=== PATIENT | female | born 1960 | race Caucasian/White ===

== ENCOUNTER 2017-08-23 20:08 | Emergency (ER) | payer MEDICARE, MEDICAID ==
--- NOTE | 2017-08-23 22:31 | RAD ---
LEFT SHOULDER THREE VIEWS: 08/23/17 No fracture, dislocation, or AC joint widening was seen. The visible adjacent ribs appear normal. No obvious cause for shoulder pain was found. IMPRESSION: No acute findings. POS: HOME
== END 2017-08-23 21:18 | disposition home or self-care (01) ==
LOC: BURERS 20:08
DX: S46.912A Strain of unspecified muscle, fascia and tendon at shoulder and upper arm level, left arm, initial encounter (principal); J44.9 Chronic obstructive pulmonary disease, unspecified; M19.90 Unspecified osteoarthritis, unspecified site; F41.9 Anxiety disorder, unspecified; F32.9 Major depressive disorder, single episode, unspecified; F17.210 Nicotine dependence, cigarettes, uncomplicated; X58.XXXA Exposure to other specified factors, initial encounter

== ENCOUNTER 2018-07-21 00:26 | Emergency (ER) | payer MEDICAID, MEDICARE | END 2018-07-21 00:57 | disposition home or self-care (01) | LOC: BURERS 00:26 | DX: H60.93 Unspecified otitis externa, bilateral (principal); J44.9 Chronic obstructive pulmonary disease, unspecified; F41.9 Anxiety disorder, unspecified; F32.9 Major depressive disorder, single episode, unspecified; F17.210 Nicotine dependence, cigarettes, uncomplicated; Z79.899 Other long term (current) drug therapy | CPT/HCPCS: 99282 ==

== ENCOUNTER 2019-05-26 13:59 | Emergency (ER) | payer MEDICARE, MEDICAID | END 2019-05-26 14:38 | disposition home or self-care (01) | LOC: BURERS 13:59 | DX: K04.7 Periapical abscess without sinus (principal); J44.9 Chronic obstructive pulmonary disease, unspecified; M19.90 Unspecified osteoarthritis, unspecified site; F41.9 Anxiety disorder, unspecified; F32.9 Major depressive disorder, single episode, unspecified; F17.290 Nicotine dependence, other tobacco product, uncomplicated; F17.210 Nicotine dependence, cigarettes, uncomplicated | CPT/HCPCS: 99281 ==

== ENCOUNTER 2020-03-11 15:13 | Outpatient (CLI) | payer MEDICARE, MEDICAID ==
--- NOTE | 2020-03-11 15:37 | RAD ---
Exam: 2 views lumbar spine COMPARISON: 07/25/2013 HISTORY: Lumbar radiculopathy. FINDINGS: 5 lumbar type vertebra. Stable bilateral transpedicular screws at L4 and L5 and lateral rig ht-sided transpedicular screw at S1. No perihardware loosening. Lumbar spine vertebral body height is maintained. No fracture. Stable mild/moderate loss of disc spac e at L4-L5 and moderate loss of disc space at L5-S1. There is a sacrum and bony pelvis is intact IMPRESSION: Uncomplicated lumbar fusion.
== END 2020-03-11 15:14 | disposition home or self-care (01) ==
LOC: BURRAD 15:13
PROVIDERS: ATTEND Neurological Surgery
DX: M54.16 Radiculopathy, lumbar region (principal); Z98.1 Arthrodesis status
CPT/HCPCS: 72100

== ENCOUNTER 2020-10-28 09:36 | Emergency (ER) | payer MEDICARE, MEDICAID ==
[2020-10-28 10:45] LABS: #Basophils 0.1 thou/uL (0.0-0.2); #Eosinphils 0.2 thou/uL (0.0-0.7); #Lymphocytes 3.1 thou/uL (1.20-3.40); #Monocytes 0.7 thou/uL (0.11-0.59); #Neutrophils 10.3 thou/uL (1.40-6.50); %Basophils 0.6 % (0.0-1.0); %Eosinophils 1.2 % (0.0-10.0); %Lymphocytes 21.3 % (21.0-51.0); %Monocytes 4.7 % (0.0-10.0); %Neutrophils 72.2 % (42.0-75.0); Hemoglobin 15.9 g/dL (12.0-16.0); Mean Corpuscular HGB CONC 33.9 g/dL (32.0-36.0); Mean Corpuscular Volume 85.6 fL (78.0-98.0); Mean Platelet Volume 9.4 fL (7.4-10.4); Platelet Count 277 thou/uL (130-400); RBC Distribution Width 12.9 % (11.5-14.5); White Blood Cell (WBC) Count 14.3 thou/uL (4.8-10.8)
[2020-10-28 10:49] LABS: ALT (SGPT) 17 U/L (8-55); AST (SGOT) 13 U/L (5-34); Albumin 4.5 g/dL (3.5-5.0); Alkaline Phosphatase 128 U/L (40-110); Anion Gap 21 mmol/L (10-20); BUN (Urea Nitrogen) 10 mg/dL (9.8-20.1); Bilirubin, Total 0.4 mg/dL (0.2-1.2); Calc. Creatinine Clearance 0 mL/min (70-130); Carbon Dioxide 17 mmol/L (22-29); Chloride 105 mmol/L (98-107); Globulin 3.8 g/dL (2.4-3.5); Glucose 140 mg/dL (70-105); Protein, Total 8.3 g/dL (6.0-8.3); Sodium 139 mmol/L (136-145)
[2020-10-28] MEDS ORDERED: Iopamidol 370 76% 100 ML VIAL ONE (10:51)
[2020-10-28] MEDS ORDERED: Lorazepam 2 MG/ML VIAL ONE (11:41)
[2020-10-28] MEDS ORDERED: Aspirin Chewable 81 MG TAB ONE (11:41)
[2020-10-28 13:43] LABS: Troponin I Less than 0.010 ng/mL (< 0.028)
[2020-10-28] MEDS ORDERED: Lorazepam 0.5 MG TAB ONE (13:52)
[2020-10-28 14:05] LABS: Acetaminophen Less than 6.0 mcg/mL (10.0-30.0); Alcohol Less than 10 mg/dL (Less than 10); Salicylate Less than 8.0 mg/dL (15.0-30.0)
[2020-10-28 14:19] LABS: Bilirubin Negative (Negative); Blood, Urine Negative (Negative); Clarity Clear (Clear); Glucose, Urine (Dipstick) Negative (Negative); Ketone, Urine Negative (Negative); Leukocyte Negative (Negative); Nitrite Negative (Negative); Protein, Urine (Dipstick) Negative (Neg-Trace); Specific Gravity, Urine 1.015 (1.005-1.030); Urobilinogen 0.2 mg/dL (Less than 2)
[2020-10-28 14:54] LABS: Cocaine Metabolite Screen Not Detected (NotDetected); Methamphetamine Not Detected (NotDetected); Phencyclidine (PCP) Not Detected (NotDetected); THC/Cannabinoid Screen Not Detected (NotDetected)
[2020-10-28 14:55] LABS: Amphetamine Not Detected (NotDetected); Barbiturates Screen Not Detected (NotDetected); Benzodiazepine Screen Detected (NotDetected); Medtox Control Line Valid? VALID (VALID); Methadone Not Detected (NotDetected); Opiate Screen Not Detected (NotDetected); Oxycodone Screen Not Detected (NotDetected); Tricyclic Screen Not Detected (NotDetected)
== END 2020-10-28 15:39 | disposition left against medical advice (07) ==
LOC: BURERS 09:36
DX: R07.2 Precordial pain (principal); J44.9 Chronic obstructive pulmonary disease, unspecified; M19.90 Unspecified osteoarthritis, unspecified site; F17.210 Nicotine dependence, cigarettes, uncomplicated; F17.290 Nicotine dependence, other tobacco product, uncomplicated
CPT/HCPCS: 71045; 71275; 80053; 80306; 80307; 81003; 83880; 84484; 85025; 93005; 96374; J2060; Q9967

== ENCOUNTER 2021-02-03 19:14 | Emergency (ER) | payer MEDICARE, MEDICAID ==
[2021-02-04 18:13] LABS: SARS-CoV-2 PCR by NAA Not Detected (NotDetected)
== END 2021-02-03 19:45 | disposition home or self-care (01) ==
LOC: BURERS 19:14
DX: R50.9 Fever, unspecified (principal); R05.9 Cough, unspecified; R51.9 Headache, unspecified; Z20.822 Contact with and (suspected) exposure to COVID-19; J44.9 Chronic obstructive pulmonary disease, unspecified; F17.290 Nicotine dependence, other tobacco product, uncomplicated
CPT/HCPCS: 99284; U0003; U0005

== ENCOUNTER 2021-04-27 09:37 | Emergency (ER) | payer MEDICARE, MEDICAID ==
[2021-04-27] MEDS ORDERED: Heparin 10,000 UNITS/ 10 ML VIAL FS ONE (09:38)
[2021-04-27] MEDS ORDERED: Aspirin Chewable 81 MG TAB ONE (09:49)
[2021-04-27] MEDS ORDERED: Ondansetron PF 4 MG/2 ML Vial ONE ×2 (09:52→11:10)
[2021-04-27] MEDS ORDERED: Morphine 4 MG/ML VIAL ONE ×2 (09:52→11:58)
[2021-04-27 10:04] LABS: #Basophils 0.1 thou/uL (0.0-0.2); #Eosinphils 0.2 thou/uL (0.0-0.7); #Lymphocytes 2.8 thou/uL (1.20-3.40); #Monocytes 0.6 thou/uL (0.11-0.59); #Neutrophils 10.5 thou/uL (1.40-6.50); %Basophils 0.6 % (0.0-1.0); %Eosinophils 1.6 % (0.0-10.0); %Lymphocytes 19.6 % (21.0-51.0); %Monocytes 4.1 % (0.0-10.0); %Neutrophils 74.1 % (42.0-75.0); Hemoglobin 15.7 g/dL (12.0-16.0); Mean Corpuscular Hemoglobin 29.8 pg (27.0-31.0); Mean Corpuscular Volume 87.6 fL (78.0-98.0); Mean Platelet Volume 9.3 fL (7.4-10.4); Platelet Count 257 thou/uL (130-400); RBC Distribution Width 13.8 % (11.5-14.5); Red Blood Cell (RBC) Count 5.28 mill/uL (4.20-5.40); White Blood Cell (WBC) Count 14.2 thou/uL (4.8-10.8)
[2021-04-27] MEDS ORDERED: Heparin 10,000 UNITS/ 10 ML VIAL ONE (10:05)
[2021-04-27] MEDS ORDERED: Nitroglycerin 100MG/250ML BOT 0 ML ONE (10:06)
[2021-04-27] MEDS ORDERED: Atropine Sulfate 1 mg/10 ml Syringe ONE (10:06)
[2021-04-27] MEDS ORDERED: Nitroglycerin 100MG/250ML BOT 250 ML ONE (10:06)
[2021-04-27 10:09] LABS: INR-International Normal Ratio 0.9; Prothrombin Time 12.6 sec (12.0-14.7)
[2021-04-27 10:10] LABS: PTT 33.2 sec (22.9-36.1)
[2021-04-27] MEDS ORDERED: Adenosine 6 MG/2 ML VIAL ONE (10:15)
[2021-04-27 10:37] LABS: ALT (SGPT) 22 U/L (8-55); AST (SGOT) 19 U/L (5-34); Albumin 4.3 g/dL (3.5-5.0); Alkaline Phosphatase 118 U/L (40-110); Anion Gap 20 mmol/L (10-20); BUN (Urea Nitrogen) 9 mg/dL (9.8-20.1); Bilirubin, Total 0.3 mg/dL (0.2-1.2); Calc. Creatinine Clearance 0 mL/min (70-130); Calcium 9.6 mg/dL (7.8-10.44); Carbon Dioxide 16 mmol/L (22-29); Chloride 105 mmol/L (98-107); Globulin 3.6 g/dL (2.4-3.5); Glucose 146 mg/dL (70-105); Potassium 3.9 mmol/L (3.5-5.1); Protein, Total 7.9 g/dL (6.0-8.3); Sodium 137 mmol/L (136-145)
[2021-04-27] MEDS ORDERED: Verapamil 5 MG/2 ML VIAL ONE (11:06)
[2021-04-27] MEDS ORDERED: Midazolam HCl 2 mg/2 ml Vial ONE ×2 (11:10→11:37)
[2021-04-27] MEDS ORDERED: TICAGRELOR 90 MG TABLET ONE (11:52)
[2021-04-27] MEDS ORDERED: Amiodarone 150 MG/3 ML VIAL ONE ×2 (12:33→12:49)
[2021-04-27] MEDS ORDERED: Sodium Chloride 0.9% 1,000 ML BAG ONE (16:16)
== END 2021-04-27 10:35 | disposition short-term general hospital (02) ==
LOC: BURERS 09:37
DX: I21.3 ST elevation (STEMI) myocardial infarction of unspecified site (principal); J44.9 Chronic obstructive pulmonary disease, unspecified; M19.90 Unspecified osteoarthritis, unspecified site; F17.210 Nicotine dependence, cigarettes, uncomplicated
CPT/HCPCS: 71045; 80053; 83880; 84484; 85025; 85610; 85730; 93005; 96365; 96375; J0153; J0282; J0461; J1644; J2250; J2270; J2405; J7050

== ENCOUNTER 2021-12-20 14:11 | Outpatient (CLI) | payer OTHER, MEDICAID | END 2021-12-20 14:12 | disposition home or self-care (01) | LOC: BURRAD 14:11 | PROVIDERS: ATTEND Nurse Practitioner Family | DX: M25.561 Pain in right knee (principal) ==

== ENCOUNTER 2022-01-15 01:34 | Emergency (ER) | payer OTHER, MEDICAID ==
[2022-01-15] MEDS ORDERED: Bupivacaine 0.5% 10 ML VIAL ONE (01:40)
[2022-01-15] MEDS ORDERED: Penicillin V Potassium 250 MG TAB ONE (01:40)
== END 2022-01-15 01:55 | disposition home or self-care (01) ==
LOC: BURERS 01:34
DX: K02.9 Dental caries, unspecified (principal); J44.9 Chronic obstructive pulmonary disease, unspecified; M19.90 Unspecified osteoarthritis, unspecified site; I25.2 Old myocardial infarction; F17.210 Nicotine dependence, cigarettes, uncomplicated; Z79.82 Long term (current) use of aspirin; Z79.899 Other long term (current) drug therapy
CPT/HCPCS: 64400; J3490

== ENCOUNTER 2022-01-31 22:56 | Emergency (ER) | payer OTHER, MEDICAID ==
[2022-01-31] MEDS ORDERED: Iopamidol 370 76% 100 ML VIAL FS ONE (22:57)
[2022-02-01 00:05] LABS: #Basophils 0.1 thou/uL (0.0-0.2); #Eosinphils 0.4 thou/uL (0.0-0.7); #Lymphocytes 4.4 thou/uL (1.20-3.40); #Monocytes 0.5 thou/uL (0.11-0.59); #Neutrophils 10.6 thou/uL (1.40-6.50); %Basophils 0.6 % (0.0-1.0); %Eosinophils 2.5 % (0.0-10.0); %Lymphocytes 27.2 % (21.0-51.0); %Monocytes 3.1 % (0.0-10.0); %Neutrophils 66.6 % (42.0-75.0); Hemoglobin 16.2 g/dL (12.0-16.0); Mean Corpuscular HGB CONC 34.2 g/dL (32.0-36.0); Mean Corpuscular Hemoglobin 30.4 pg (27.0-31.0); Mean Corpuscular Volume 88.8 fL (78.0-98.0); Mean Platelet Volume 9.7 fL (7.4-10.4); Platelet Count 336 thou/uL (130-400); RBC Distribution Width 12.6 % (11.5-14.5); Red Blood Cell (RBC) Count 5.32 mill/uL (4.20-5.40)
[2022-02-01 00:20] LABS: ALT (SGPT) 16 U/L (8-55); AST (SGOT) 17 U/L (5-34); Albumin 4.3 g/dL (3.5-5.0); Alkaline Phosphatase 139 U/L (40-110); Anion Gap 14 mmol/L (10-20); BUN (Urea Nitrogen) 10 mg/dL (9.8-20.1); Bilirubin, Total 0.4 mg/dL (0.2-1.2); Calc. Creatinine Clearance 0 mL/min (70-130); Calcium 9.2 mg/dL (7.8-10.44); Carbon Dioxide 19 mmol/L (22-29); Chloride 109 mmol/L (98-107); Estimated GFR 100; Globulin 3.2 g/dL (2.4-3.5); Glucose 115 mg/dL (70-105); Lipase 45 U/L (8-78); Potassium 4.4 mmol/L (3.5-5.1); Protein, Total 7.5 g/dL (6.0-8.3); Sodium 138 mmol/L (136-145)
[2022-02-01 00:48] LABS: Bilirubin Negative (Negative); Blood, Urine Negative (Negative); Clarity Clear (Clear); Glucose, Urine (Dipstick) Negative (Negative); Ketone, Urine Negative (Negative); Leukocyte Negative (Negative); Nitrite Negative (Negative); Protein, Urine (Dipstick) Negative (Neg-Trace); Specific Gravity, Urine 1.025 (1.005-1.030); Urobilinogen 0.2 mg/dL (Less than 2); pH, Urine 5.5 (5.0-9.0)
[2022-02-01] MEDS ORDERED: Morphine 4 MG/ML VIAL ONE ×3 (01:55→02:23)
[2022-02-01] MEDS ORDERED: cefTRIAXone\\ROCEPHIN 1 GM VIAL ONE (02:01)
[2022-02-01] MEDS ORDERED: metroNIDAZOLE 500 MG/100 ML BAG ONE (02:01)
[2022-02-01] MEDS ORDERED: Sodium Chloride 0.9% 100 ML ONE (02:05)
== END 2022-02-01 02:30 | disposition short-term general hospital (02) ==
LOC: BURERS 22:56
DX: K56.609 Unspecified intestinal obstruction, unspecified as to partial versus complete obstruction (principal); I25.2 Old myocardial infarction; F17.290 Nicotine dependence, other tobacco product, uncomplicated
CPT/HCPCS: 71045; 74177; 80053; 81003; 83605; 83690; 84484; 85025; 93005; 96374; 96376; J0696; J2270; J3490; Q9967

== ENCOUNTER 2023-09-03 13:11 | Emergency (ER) | payer MEDICARE, MEDICAID ==
[2023-09-03] MEDS ORDERED: Cephalexin 250 MG CAP ONE (14:14)
[2023-09-03] MEDS ORDERED: Sulfameth/Trimethoprim DS 800-160mg TAB ONE (14:14)
== END 2023-09-03 14:43 | disposition home or self-care (01) ==
LOC: BURERS 13:11
DX: H60.12 Cellulitis of left external ear (principal); M65.341 Trigger finger, right ring finger; F17.290 Nicotine dependence, other tobacco product, uncomplicated

== ENCOUNTER 2025-02-27 18:23 | Emergency (ER) | payer MEDICARE, MEDICAID ==
[2025-02-27] MEDS ORDERED: Ketorolac Tromethamine 30 MG (1 mL) VIAL ONE (19:41)
== END 2025-02-27 19:59 | disposition home or self-care (01) ==
LOC: BURERS 18:23
DX: M79.642 Pain in left hand (principal); E78.5 Hyperlipidemia, unspecified; F17.210 Nicotine dependence, cigarettes, uncomplicated; F17.290 Nicotine dependence, other tobacco product, uncomplicated; Z79.899 Other long term (current) drug therapy
CPT/HCPCS: 96372; 99283; J1885